=== PATIENT | male | born 1940 | race Caucasian/White ===

== ENCOUNTER → 2020-11-24 | Outpatient (CLI) | payer MEDICARE, OTHER ==
[~2020-11-24] MED LIST: ASPIR 8181 MG PO; ATORVASTATIN CA40 MG PO; CIPRO500 MG PO; COZAAR 50 MG TA50 M2 PO; FLEXERIL PO; LOPRESSOR25 PO; NITROGLYCERIN0.4 MG SUBLING; NORCO 5-325 TA1 EACH PO; PLAVIX 75 MG TA75 M1 PO
== END ==
LOC: M.ULTRA 10:16
PROVIDERS: ATTEND Internal Medicine Cardiovascular Disease
DX: I65.21 Occlusion and stenosis of right carotid artery (principal); I63.89 Other cerebral infarction

== ENCOUNTER → 2020-12-23 | Outpatient (CLI) | payer MEDICARE, OTHER ==
[2020-12-23 09:02] LABS: CREATININE 1.2 mg/dL (0.6-1.3)
== END ==
LOC: M.LAB 12-22 15:28
PROVIDERS: ATTEND Surgery Vascular Surgery
DX: I65.23 Occlusion and stenosis of bilateral carotid arteries (principal); G31.89 Other specified degenerative diseases of nervous system

== ENCOUNTER 2021-07-28 16:51 | Emergency (ER) | payer MEDICARE, OTHER ==
[~2021-07-28] VITALS: Ht 172.7 cm; Wt 90.7 kg
[~2021-07-28 16:51] MED LIST changes: +FLOMAX0.4 MG PO; +LIPITOR40 MG PO; +MICARDIS 80 MG80 MG PO; +PLAVIX 75 MG TA75 MG PO; +PROTONIX40 M2 PO; +PROTONIX40 M4 PO
[2021-07-28 18:46] LABS: ABSOLUTE BASOPHILS 0.1 thou/uL (0.0-0.2); ABSOLUTE EOSINOPHILS 0.2 thou/uL (0.0-0.7); ABSOLUTE LYMPHOCYTES 2.3 thou/uL (0.8-5.3); ABSOLUTE MONOCYTES 0.7 thou/uL (0.0-1.2); ABSOLUTE NEUTROPHILS 3.7 thou/uL (1.6-8.1); BASOPHILS 0.8 %; EOSINOPHILS 2.9 %; HEMATOCRIT 43.1 % (42.0-52.0); HEMOGLOBIN 14.8 gm/dL (14.0-18.0); LYMPHOCYTES 33.2 %; MCH 31.4 pg (26.0-34.0); MCHC 34.4 g/dL (28.0-37.0); MCV 91.3 fL (80.0-100.0); MONOCYTES 10.1 %; MPV 7.9 fl. (7.2-11.1); NUCLEATED RBCS 0 /100WBC; PLATELET COUNT* 178 thou/uL (150-400); RBC 4.72 mil/uL (4.50-6.00); RDW-CV 12.8 % (10.5-14.5)
[2021-07-28 18:54] LABS: CALCIUM 9.3 mg/dL (8.5-10.1); CREATININE 1.2 mg/dL (0.6-1.3); POTASSIUM 4.1 mmol/L (3.5-5.1)
[2021-07-28 19:05] LABS: ALBUMIN 4.1 g/dL (3.4-5.0); TOTAL BILIRUBIN 1.3 mg/dL (<0.1-1.0); TOTAL PROTEIN 7.7 g/dL (6.4-8.2)
[2021-07-28 19:57] LABS: URINE BILIRUBIN NEGATIVE (Negative); URINE BLOOD NEGATIVE (Negative); URINE CLARITY CLEAR; URINE COLOR YELLOW; URINE GLUCOSE-RANDOM NEGATIVE (Negative); URINE KETONES NEGATIVE (Negative); URINE LEUKOCYTES-REFLEX NEGATIVE (Negative); URINE NITRITE-REFLEX NEGATIVE (Negative); URINE PROTEIN NEGATIVE (Negative); URINE UROBILINOGEN 0.2 E.U./dl (0.2-1.0)
[2021-07-28 20:26] LABS: INFLUENZA A ANTIGEN Negative (Negative); INFLUENZA B ANTIGEN Negative (Negative)
[2021-07-28 21:29] VITALS: BP 151/78
--- NOTE | 2021-07-29 09:38 | EKG ---
[place] [address] ELECTROCARDIOGRAM REPORT Name: MARIXA VEGA Room: [facility]#: [id number] Admission: 07/28/21 Attend Phys: Discharge: 07/28/21 Date of : 36 Date of Service: 07/28/21 1704 Report #: [id number] THIS REPORT FOR: //name// [facility] ED Test Date: 2021-07-28 Test Time: 17:04:54 Pat Name: MARIXA VEGA Department: Room: Gender: Grinding Machine Operator Portable: [facility] : 1940 Requested By: Allan Holguin Order Number: [id number] MD: Hossein Lobato Measurements Intervals [place] Rate: 71 P: 35 PA: 197 QRS: 23 QRSD: 90 T: 32 QT: 383 QTc: 417 Interpretive Statements Sinus rhythm Abnormal R-wave progression, early transition Compared to ECG 10/12/2016 15:28:17 No significant changes Electronically Signed On 07-29-2021 9:38:36 [employer] by Hossein Lobato [email or web address] <ELECTRONICALLY SIGNED> By: Hossein Lobato MD, [facility] 07/29/21 0938 1704 1704 Hossein oLbato MD, [facility] /EPI
== END 2021-07-28 21:29 | disposition home or self-care (01) ==
LOC: M.ERS 16:51
PROVIDERS: Physician Assistant
DX: R42 Dizziness and giddiness (principal); Z20.822 Contact with and (suspected) exposure to COVID-19; R06.00 Dyspnea, unspecified; I10 Essential (primary) hypertension; K21.9 Gastro-esophageal reflux disease without esophagitis

== ENCOUNTER → 2021-08-25 | Outpatient (CLI) | payer MEDICARE, OTHER | LOC: M.RAD 10:58 | PROVIDERS: ATTEND Family Medicine | DX: M47.816 Spondylosis without myelopathy or radiculopathy, lumbar region (principal); M41.85 Other forms of scoliosis, thoracolumbar region; M25.78 Osteophyte, vertebrae; I70.0 Atherosclerosis of aorta ==